=== PATIENT | female | born 1970 | race African-American/Black ===

== ENCOUNTER 2019-10-05 20:53 | Emergency (ER) | payer OTHER ==
[~2019-10-05] VITALS: Ht 152.4 cm; Wt 71.2 kg
[2019-10-05 21:16] LABS: URINE BLOOD 3+ (Negative); URINE CLARITY CLOUDY; URINE COLOR RED; URINE GLUCOSE-RANDOM* NEGATIVE (Negative); URINE KETONES NEGATIVE (Negative); URINE PROTEIN (DIPSTICK) 2+ (Negative)
[2019-10-05] MEDS ORDERED: VALTREX 500 MG500 M1 PO (21:18)
[2019-10-05] MEDS ORDERED: LIPITOR 20 MG T20 M1 PO (21:20)
[2019-10-05 21:25] LABS: ICTOTEST (BILI CONFIRMATORY) Negative (Negative); URINE BILIRUBIN NEGATIVE (Negative); URINE LEUKOCYTES-REFLEX 3+ (Negative); URINE NITRITE-REFLEX POSITIVE (Negative)
[2019-10-05 21:27] LABS: BACTERIA-REFLEX 1-9 Few /HPF (None Seen); CASTS None Seen /LPF (None Seen); CRYSTALS None Seen /LPF (None Seen); SQUAMOUS 0-3 Few /LPF (0-3); URINE RBC >20 Many /HPF (0-2)
[2019-10-05] MEDS ORDERED: PHENAZOPYRIDIN200 M2 PO (21:33)
[2019-10-05] MEDS ORDERED: KEFLEX500 M1 PO (21:33)
[2019-10-05 22:09] VITALS: BP 127/74
== END 2019-10-05 22:10 | disposition home or self-care (01) ==
LOC: ER 20:53
PROVIDERS: Physician Assistant
DX: N39.0 Urinary tract infection, site not specified (principal); Z79.899 Other long term (current) drug therapy